=== PATIENT | male | born 1975 | race Caucasian/White ===

== ENCOUNTER 2016-05-08 02:44 | Emergency (ER) | payer SELFPAY ==
[2016-05-08] MEDS ORDERED: NORMAL SALINE 1000 ML 1,000 ML IV ONE ×2 (03:20→05:45)
[2016-05-08] MEDS ORDERED: ONDANSETRON HCL INJ/PF 4 MG/2 ML SDV IV ONE (03:20)
[2016-05-08] MEDS ORDERED: KETOROLAC TROMETHAMINE INJ/PF 30 MG/1 ML SDV IV ONE (03:20)
[2016-05-08] MEDS ORDERED: MORPHINE SULFATE 10 MG/ML INJ IV ONE ×2 (03:35→05:44)
--- NOTE | 2016-05-08 03:35 | ER Document Report ---
ED General - General Chief Complaint: Flank Pain Stated Complaint: FLANK PAIN Mode of Arrival: Ambulatory Information source: Patient Notes: Patient presents to the emergency department with complaints of severe lower abdominal pain, left flank pain that started 3 days ago. Patient reports pain would come and go. He reports he took a hot shower this morning seemed to relax the pain, he felt better. He reports pain returned tonight. He reports he vomited yesterday and today. Last emesis was PTO outside in [facility]. Reports last bowel movement was prior to arrival normal. Denies trauma. Denies fever. Denies pain with void or difficulty voiding. Reports the pain radiates down to his testicles but denies swelling. TRAVEL OUTSIDE OF THE [place] IN LAST 30 DAYS: No - HPI Onset: Other - 3 days Onset/Duration: Waxing and waning Quality of pain: Sharp Severity: Severe Pain Level: 5 Associated symptoms: Nausea, Vomiting Exacerbated by: Denies Relieved by: Denies Similar symptoms previously: No Recently seen / treated by doctor: No - Related Data Allergies/Adverse Reactions: No Known Allergies Allergy (Unverified 02/14/11 09:54) Past Medical History - General Information source: Patient - Social History Smoking Status: Never Smoker Chew tobacco use (# tins/day): No Frequency of alcohol use: None Drug Abuse: None Occupation: self employed Family History: Reviewed & Not Pertinent Patient has suicidal ideation: No Patient has homicidal ideation: No Renal/ Medical History: Denies: Hx Peritoneal Dialysis Past Surgical History: Reports: Other - hernia repair x 3 - Immunizations Hx Diphtheria, Pertussis, Tetanus Vaccination: No Review of Systems - Review of Systems Notes: Review HPI for review of systems., All other systems negative Physical Exam - Vital signs Vitals: Temp Pulse Resp BP Pulse Ox 98.4 F 66 16 118/82 96 05/08/16 04:00 05/08/16 04:00 05/08/16 04:00 05/08/16 04:00 05/08/16 04:00 - Notes Notes: PHYSICAL EXAMINATION: GENERAL: pt appears to be in severe pain, refuses to lay in bed HEAD: Atraumatic, normocephalic. EYES: Pupils equal round extraocular movements intact, sclera anicteric, conjunctiva are normal. ENT: nares patent, oropharynx clear without exudates. Moist mucous membranes. NECK: Normal range of motion, supple without lymphadenopathy LUNGS: CTAB and equal. No wheezes rales or rhonchi. HEART: Regular rate and rhythm without murmurs ABDOMEN: Soft, lower abdominal pain. No guarding, no rebound BACK: Left CVA ttp EXTREMITIES: Normal range of motion, no pitting edema. No cyanosis. NEUROLOGICAL: Cranial nerves grossly intact. Normal sensory/motor exams. PSYCH: Normal mood, normal affect. SKIN: Warm, Dry, normal turgor, no rashes or lesions noted Course - Re-evaluation Re-evalutation: 05/08/16 05:[address] scan kidney stone. Patient reports he's starting to feel the pain coming back. No further vomiting. Patient is definitely more relaxed sitting in the bed. Patient reports no history of kidney stones. Discussed plan of care, Flomax pain medication, he verbalized understanding 05/08/16 06:33 Patient feeling much better. Again discussed kidney stone plan of care medications, push fluids. Patient was also instructed to return the emergency department for increased pain fever problems voiding. He verbalized understanding. Patient was also instructed to follow up with urology. - Vital Signs Vital signs: Temp Pulse Resp BP Pulse Ox 98.4 F 75 19 146/122 H 98 05/08/16 04:00 05/08/16 04:08 05/08/16 04:08 05/08/16 04:08 05/08/16 04:08 - Laboratory Result Diagrams: 05/08/16 03:28 05/08/16 03:28 Laboratory results interpreted by me: 05/08/16 05/08/16 05/08/16 03:28 03:28 04:51 RBC 5.67 H Plt Count 148 L Seg Neutrophils % 80.0 H Lymphocytes % 11.3 L Creatinine 1.33 H Est GFR (Non-Af Amer) 59 L Glucose 119 H Urine Protein 30 H Urine Blood SMALL H - Diagnostic Test Radiology reviewed: Image reviewed, Reports reviewed - IMPRESSION: 4.7 mm calculus proximal left ureter with moderate obstructive changes. Discharge - Discharge Clinical Impression: Flank pain, Kidney stone on left side Condition: Stable Disposition: HOME, SELF-CARE Instructions: Flomax ([facility]), Intravenous (IV) Fluids ([facility]), Kidney Stone ([facility]), Oral Narcotic Medication ([facility]), Pain Medication Injection ([facility]), Toradol Injection ([facility]) Additional Instructions: *You have been evaluated for Flank pain, vomiting, kidney stone *Take medication as prescribed *Follow up with a primary care provider within one week *Follow up with a urologist *Return to ED for worsening condition, changes, needs, increased pain, fever, unable to void Prescriptions: Ondansetron HCl [Zofran 4 mg Tablet] 1 - 2 tab PO Q4H PRN #10 tablet PRN Reason: Oxycodone HCl/Acetaminophen [Percocet 5-325 mg Tablet] 1 - 2 tab PO ASDIR PRN # 20 tablet PRN Reason: Tamsulosin HCl [Flomax 0.4 mg Cap.sr] 0.4 mg PO DAILY #7 cap.sr.24h Forms: Elevated Blood Pressure Referrals: [facility] [Provider Group] - Follow up in 1 week
[2016-05-08 03:38] LABS: ABSOLUTE EOSINOPHILS # (AUTO) 0.1 10^3/uL (0.0-0.6); ABSOLUTE LYMPHOCYTES (AUTO) 1.1 10^3/uL (0.5-4.7); ABSOLUTE MONOCYTES (AUTO) 0.7 10^3/uL (0.1-1.4); ABSOLUTE NEUT (AUTO) 7.9 10^3/uL (1.7-8.2); BASOPHILS % (AUTO) 0.4 % (0-2); EOSINOPHILS % (AUTO) 1.3 % (0-6); HEMATOCRIT 47.6 % (37.9-51.0); HEMOGLOBIN 16.7 g/dL (13.5-17.0); HGB HCT DIFFERENCE 2.5; LYMPHOCYTES % (AUTO) 11.3 % (13-45); MEAN CORPUSCULAR HEMOGLOBIN 29.5 pg (27.0-33.4); MEAN CORPUSCULAR HGB CONC 35.1 g/dL (32.0-36.0); MEAN CORPUSCULAR VOLUME 84 fl (80-97); RED BLOOD COUNT 5.67 10^6/uL (4.35-5.55); WHITE BLOOD COUNT 9.9 10^3/uL (4.0-10.5)
[2016-05-08 03:50] LABS: ALANINE AMINOTRANSFERASE 32 U/L (21-72); ALBUMIN 4.7 g/dL (3.5-5.0); ALKALINE PHOSPHATASE 87 U/L (38-126); ANION GAP 15 (5-19); ASPARTATE AMINO TRANSFERASE 21 U/L (17-59); BILIRUBIN,TOTAL 0.6 mg/dL (0.2-1.3); BLOOD UREA NITROGEN 15 mg/dL (7-20); CARBON DIOXIDE 25 mmol/L (22-30); CHLORIDE 102 mmol/L (98-107); CREATININE RESULT 1.33 mg/dL (0.52-1.25); GLUCOSE 119 mg/dL (75-110); LIPASE 45.9 U/L (23-300); POTASSIUM 4.4 mmol/L (3.6-5.0); SODIUM 141.5 mmol/L (137-145); TOTAL PROTEIN 7.4 g/dL (6.3-8.2)
[2016-05-08 05:28] LABS: APPEARANCE,URINE SLIGHTLY-CLOUDY; BILIRUBIN,URINE NEGATIVE (NEGATIVE); GLUCOSE, URINE NEGATIVE (NEGATIVE); KETONES,URINE NEGATIVE (NEGATIVE); LEUKOCYTE ESTERASE,URINE NEGATIVE (NEGATIVE); NITRITE,URINE NEGATIVE (NEGATIVE); PROTEIN,URINE 30 mg/dL (NEGATIVE); URINE SPECIFIC GRAVITY 1.031; UROBILINOGEN,URINE NEGATIVE mg/dL (<2.0)
[2016-05-08] MEDS ORDERED: TAMSULOSIN HCL 0.4 MG CAP.SR.24H PO ONE (05:38)
[2016-05-08 07:03] VITALS: BP 121/79
== END 2016-05-08 08:07 | disposition home or self-care (01) ==
LOC: ER 02:44
DX: N20.0 Calculus of kidney (principal); R10.30 Lower abdominal pain, unspecified; R11.2 Nausea with vomiting, unspecified
CPT/HCPCS: 96376; 99284; 96374; 96375; 36415; 83690; 85025; 80053; 81001; 76380; J1885; J2270; J2405; J7030